=== PATIENT | female | born 1960 | race Caucasian/White ===

== ENCOUNTER → 2023-02-08 | Outpatient (CLI) | payer OTHER ==
[2023-02-09 03:06] LABS: RUBELLA AB IGG-REFLAB 5.27 index (Immune >0.99); RUBEOLA (MEASLES) IGG 31.5 AU/mL (Immune >16.4)
[2023-02-09 05:08] LABS: MUMPS VIRUS IGG ANTIBODY 43.4 AU/mL (Immune >10.9)
== END | disposition home or self-care (01) ==
LOC: LABMN 11:29
PROVIDERS: ATTEND Internal Medicine
DX: Z02.1 Encounter for pre-employment examination (principal)
CPT/HCPCS: 86706; 86735; 86762; 86765; 86787